=== PATIENT | female | born 1990 | race Caucasian/White ===

== ENCOUNTER 2019-09-14 10:28 | Emergency (ER) | payer OTHER, SELFPAY ==
--- NOTE | 2019-09-14 10:41 | ED.GENADULT ---
HPI - General Adult General Chief complaint: Upper Respiratory Infection Stated complaint: Cough Time Seen by Provider: 09/14/19 10:42 Source: patient and RN notes reviewed Mode of arrival: ambulatory Limitations: no limitations History of Present Illness HPI narrative: This is a 29 years old female for an evaluation of flu/cold symptoms for two days. Symptoms include cough, feverish, sore throat, congestion. She had three months baby; currently breast feeding. NO treatment prior to arrival. She received influenza vaccine for this season. Related Data Home Medications Medication Instructions Recorded Confirmed PNV cmb#95-ferrous fumarate-FA 1 tablet PO DAILY 06/10/19 09/14/19 [] duloxetine 30 mg PO DAILY 09/14/19 09/14/19 duloxetine 60 mg PO DAILY 09/14/19 09/14/19 fluticasone propionate 1 mcg INTRANASAL DIRECTED 09/14/19 09/14/19 norethindrone (contraceptive) 0.35 mg PO DIRECTED 09/14/19 09/14/19 prednisone 10 mg PO DAILY 09/14/19 09/14/19 Allergies Allergy/AdvReac Type Severity Reaction Status Date / Time No Known Allergies Allergy Unknown Verified 09/14/19 10:44 Review of Systems Review of Systems: Narrative: CONSTITUTIONAL: Reports fever, chills, sweats. ENT: Reports rhinorrhea, congestion, sore throat, otalgia. CARDIOVASCULAR: Denies chest pain RESPIRATORY: Denies dyspnea, wheezing. Reports cough GASTROINTESTINAL: Denies abdominal pain, nausea, diarrhea. +vomiting last night GENITOURINARY: Denies urinary symptoms or discharge SKIN: Denies rash MUSCULOSKELETAL: Denies acute back pain NEUROLOGIC: Denies lightheaded PMFSH Past Medical History Medical History Obesity Family History Family History Grandparent COPD (chronic obstructive pulmonary disease) Lung cancer Social History Social History Smoking status: Former smoker Tobacco type: cigarettes Second hand tobacco smoke exposure: Yes Substance use: never Gender identity (if verbalized by the patient): Female Spiritual care concerns: No Comments At time of signature, I agree with nursing past medical, surgical, social and family history. There is no relevant family history pertinent to the presenting complaint. Exam Narrative: Exam Narrative: GENERAL: This is a well-nourished, well-developed patient, in no apparent distress. EYES: Sclera clear/white. Vision is grossly intact. EARS: External ears normal, auditory canals clear and without drainage, TMs normal without perforation. Hearing grossly intact. NOSE: External nose normal with no obvious nasal discharge, nares without redness, no rhinorrhea. THROAT: Mucous membranes moist, posterior pharynx clear. NECK: Neck supple, non-tender without lymphadenopathy, masses or thyromegaly. CARDIOVASCULAR: Regular rate and rhythm without murmurs, gallops, or rubs. RESPIRATORY: Clear to auscultation. Breath sounds equal bilaterally. No wheezes, rales, or rhonchi. GASTROINTESTINAL: Abdomen soft, non-tender, nondistended. Bowel sounds are active. No hepato-splenomegaly, or palpable masses. No guarding. SKIN: warm, intact with no suspicious lesions or rash, good texture and turgor. NEURO: awake, alert, and oriented to person, place and time. There were no obvious focal neurologic abnormalities. Steady gait [place] Coma Scale Eye Opening: Spontaneous 4 [place] Coma Scale Motor: Obeys Commands 6 [place] Coma Scale Verbal: Oriented 5 Course Reevaluation(s) Reevaluation #1: I went to update patient regarding her influenza and strep test, patient vomited in the trashcane. Time: 11:01 Reevaluation #2: Patient would like to try ibuprofen and see how she fell if she able to keep it down she will would like to go home rather than going to the ER. Time: 11:33 Date: 09/14/19 Time: 11:59 Additional Reevaluation(s): Patient repo
[2019-09-14 10:45] VITALS: BP 106/63; PULSE 136; RESP 27; TEMP 38.9; O2SAT 97
[2019-09-14 10:56] VITALS: TEMP 38.8
[2019-09-14] MEDS: ACETAMINOPHEN 500 MG TABLET 1000 MG PO (10:56)
[2019-09-14] MEDS: ONDANSETRON HCL ODT 4 MG TABLET PO (11:05)
--- NOTE | 2019-09-14 11:05 | PC.NURSE ---
1100---pt coughed and then vomited in the trash moderate amount and so tylenol came back up entirely.
[2019-09-14 11:26] VITALS: TEMP 38.8
[2019-09-14 11:37] VITALS: TEMP 38.8
[2019-09-14] MEDS: IBUPROFEN SUSPENSION 200 MG/10 ML UDC 400 MG PO (11:37)
[2019-09-14 12:10] VITALS: TEMP 38.1
[2019-09-14 12:21] VITALS: PULSE 113; RESP 22; TEMP 38.1; O2SAT 98
== END 2019-09-14 12:21 | disposition home or self-care (01) ==
PROVIDERS: Emergency Provider Nurse Practitioner
DX: J06.9 Acute upper respiratory infection, unspecified (principal); Z87.891 Personal history of nicotine dependence; E66.9 Obesity, unspecified
CPT/HCPCS: 87081; 87804; 87880; 99213; A9270; G0463

== ENCOUNTER 2022-02-16 10:04 | Emergency (ER) | payer OTHER, SELFPAY ==
--- NOTE | ~2022-02-16 | XR_ITS ---
EXAMINATION: XR ankle LT min 3V DATE: 02/16/2022 10:27 INDICATION: Lateral left ankle pain. TECHNIQUE: 4 views of left ankle were obtained. COMPARISON: None. FINDINGS: Bone alignment is normal. No fracture. Joint spaces are well maintained. There is an enthes ophyte at posterior aspect of calcaneal tuberosity. IMPRESSION: 1. No fracture. Reviewed, dictated and finalized at location A. IMPRESSION: 1. No fracture.
[2022-02-16 10:13] VITALS: BP 127/69; PULSE 84; RESP 16; TEMP 36.7; O2SAT 100
--- NOTE | 2022-02-16 10:24 | ED.LOWEXIN ---
HPI - Extremity Injury (Lower) General Chief Complaint: Extremity Injury, Lower Stated Complaint: Left Ankle Pain Time Seen by Provider: 02/16/22 10:24 Source: patient Mode of arrival: ambulatory Limitations: no limitations History of Present Illness HPI Narrative: 31-year-old female presents with complaint of pain to lateral aspect left heel for approximately 1 week after hitting it with bed frame. Is concerned that she may have a fracture. States that she has not been able to rest injury due to working. 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 Is taking ibuprofen and Tylenol, has applied ice. Patient arrived wearing flip-flops slippers. Ambulatory with steady gait. All systems reviewed and negative except as noted above. Related Data Home Medications Medication Instructions Recorded Confirmed duloxetine 30 mg capsule,delayed 30 mg PO DAILY 09/14/19 09/14/19 release Iud 02/16/22 alprazolam 0.5 mg tablet (Xanax) mg 02/16/22 Allergies Allergy/AdvReac Type Severity Reaction Status Date / Time No Known Allergies Allergy Unknown Verified 09/14/19 10:44 Review of Systems Review of Systems: CONSTITUTIONAL: Denies fever, chills, or sweats. EYES: Denies visual changes, redness, or discharge. ENT: Denies rhinorrhea, congestion, sore throat, or otalgia. CARDIOVASCULAR: Denies chest pain, palpitations, or edema. RESPIRATORY: Denies cough or dyspnea. GASTROINTESTINAL: Denies abdominal pain, nausea, vomiting, or diarrhea. GENITOURINARY: Denies dysuria or hematuria. SKIN: Denies rash or itching. MUSCULOSKELETAL: Denies back pain, joint pain, or myalgia. Reports pain to left lateral heel. NEUROLOGIC: Denies headache, numbness, or weakness. PSYCHIATRIC: Denies anxiety or depression. All other systems reviewed are negative, except as documented in HPI. [facility] Past Medical History Medical History (Updated 02/16/22 @ 10:52 by Kary Espinoza NP) Obesity Family History Family History Grandparent COPD (chronic obstructive pulmonary disease) Lung cancer Social History Social History Smoking status: Former smoker Tobacco type: cigarettes Second hand tobacco smoke exposure: Yes Substance use: never Gender identity (if verbalized by the patient): Female Spiritual care concerns: No Comments At time of signature, agree with nursing past medical, surgical, social and family history. There is no relevant family history pertinent to the presenting complaint. Exam Narrative: GENERAL: This is a well-nourished, well-developed patient, in no apparent distress. HEAD: normocephalic, atraumatic. EYES: PERRL. Sclera clear/white. Vision is grossly intact. EARS: External ears normal NOSE: External nose normal NECK: Neck supple, non-tender without lymphadenopathy, masses or thyromegaly. CARDIOVASCULAR: Regular rate and rhythm without murmurs, gallops, or rubs. RESPIRATORY: Clear to auscultation. Breath sounds equal bilaterally. No wheezes, rales, or rhonchi. SKIN: warm, Dry, intact with no suspicious lesions or rash, good texture and turgor. NEURO: awake, alert, and oriented to person, place and time. There were no obvious focal neurologic abnormalities. EXTREMITIES: No joint tenderness, effusion, or edema noted. Tenderness to lateral aspect left heel. No bruising or swelling noted. Course Course Level of Care: Express Care Visit Vital Signs Vital signs: Vital Signs Temperature 36.7 C 02/16/22 10:13 Pulse Rate 84 02/16/22 10:13 Respiratory Rate 16 02/16/22 10:13 Blood Pressure 127/69 02/16/22 10:13 Pulse Oximetry 100 02/16/22 10:13 Oxygen Delivery Room Air 02/16/22 10:13 Temperature 36.7 C 02/16/22 10:13 Pulse Rate 84 02/16/22 10:13 Respiratory Rate 16 02/16/22 10:13 Blood Pressure 127/69 02/16/22 10:13 Pulse Oximetry
== END 2022-02-16 11:08 | disposition home or self-care (01) ==
PROVIDERS: Emergency Provider Nurse Practitioner Family
DX: S90.02XA Contusion of left ankle, initial encounter (principal); W22.03XA Walked into furniture, initial encounter; Z87.891 Personal history of nicotine dependence; E66.9 Obesity, unspecified; Z68.31 Body mass index [BMI] 31.0-31.9, adult
CPT/HCPCS: 73610; 99213; G0463

== ENCOUNTER 2024-09-10 07:34 | Emergency (ER) | payer OTHER, SELFPAY ==
--- NOTE | ~2024-09-10 | XR_ITS ---
EXAMINATION: XR chest 2V DATE: 09/10/2024 09:12 INDICATION: Fever. Cough. Congestion. TECHNIQUE: Frontal and lateral views of the chest were obtained. COMPARISON: Chest 2 views 12/03/2015 FINDINGS: There is no pneumonia, pleural effusion, or pneumothorax. The heart size is normal. IMPRESSION: 1. No acute cardiopulmonary disease. Reviewed, dictated and finalized at location A. 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
--- NOTE | ~2024-09-10 | CT_ITS ---
EXAMINATION: CTA chest PE protocol DATE: 09/10/2024 10:50 INDICATION: Shortness of breath. TECHNIQUE: Computed tomography angiography (CTA) of the chest was performed with 100 mL Omnipaque-350 intravenous contrast timed to evaluate the pulmonary arteries. Coronal maximum intensity projection 3D-reconstructions were created by the technologist. Automated exposure control and iterative reconst ruction technique were employed. The dose-length product was 397.31 mGy-cm. COMPARISON: CT abdomen and pelvis 04/04/2018 FINDINGS: There is bronchiectasis and mild atelectasis in lingula. A calcified left lung nodule and c alcified left hilar and mediastinal lymph nodes are consistent with old granulomatous disease. No ple ural effusion. The heart size is normal. No pericardial effusion. There is no pulmonary embolus. Ther e is mild thoracic spondylosis. IMPRESSION: 1. No pulmonary embolus. Reviewed, dictated and finalized at location A. 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 No pulmonary embolus.
[2024-09-10 07:37] VITALS: BP 121/81; PULSE 98; RESP 20; TEMP 36.8; O2SAT 98
--- OUTSIDE RECORDS SUMMARY | 2024-09-10 07:37 | XMS_ITS | Data Portability ---
Author Organization [facility] [place] Address [address] [place] [address] Care Team Providers Care Meat Cutting Teacher Name Role Phone PRABHA JOHNSON Primary Care Provider [phone] Assessment Encounter Date Assessment Date Assessment LastModified by Organization Details LastModified Time 11/22/2021 11/22/2021 Annual gynecological exam performed. Patient will come back in a year unless there are new symptoms. Suggest Calcium with Vitamin D if not eating in diet. Patient advised to get annual flu shot. Recommend yearly physicals and preform monthly breast exams. Genetic testing is available for patients with family history of cancer. Engage in safe sexual practices, use condoms. Encouraged to have daily exercise. Avoid tobacco and illicit drugs, moderation of alcohol. If BMI greater than 25 dietary consult advised. If you have any questions please call or email. Not available 11/22/2021 11:42:43 05/09/2022 05/09/2022 restart cymbalta 30 mg daily, rf alprazolam, copy in chart, any suicidal thoughts to ED f/u med check in 5 months Not available 05/09/2022 15:38:57 Plan of Treatment Reminders Order Date Submit Date Provider Last Modified By Organization Details Last Modified Time Details Appointments None recorded. Lab None recorded. Referral None recorded. Procedures None recorded. Surgeries None recorded. Imaging None recorded. Medication Orders Cymbalta 30 mg capsule,de layed release 2021 022 [email or web address] 1 [id number], [address] [place], [place], [id number], 03/29/202 3 18:12:50 Patient TargetsNo targets recorded. Patient InstructionsNo instructions recorded. Reason for Referral None Reported. Results Created Date Observation Date Name Description Value Unit Range Abnormal Flag Note LastModifiedBy Organization Detail LastModifiedTime 11/23/19 22 11/22/2021 IMAGE GUIDE D PAP AND HPV REGAR DLESS image guided Pap, HPV regardless of Pap result SEE RESULT S BELOW CASE REPOR T: Cytol ogy Gynec ologi sigifredo Repor t Case: [id number] Autho camilla campuzano Provi estrella: Prabha Hughes, JOSE Colle cted: 11/22 1511 Order ing Locat ion: [place] [facility] Recei nu: 11/23 0133 First Deann n: Davina Lopez Speci men: Deann del valle Pap - Image d, Cervi x STATE MENT OF ADEQU ACY: Satis facto ry for evalu ation Trans forma tion zone compo nent prese nt FINAL DIAGN OSIS: Negat oliverio for Intra epith eliveronica farah or Sayra levy (NIL) . Elect alcon gillette bell d by Davina Lopez on 2021 at 8:44 PM ----- ----- ----- ----- ----- ----- ----- ----- ----- ----- ----- ----- ----- ----- ----- ----- ----- ---- HPV RESUL TS: HPV mRNA E6/E7 : No HPV mRNA Detec vicky NOTE: This high risk HPV mRNA assay detec ts fourt een high- risk HPV types (16, 18, 31, 33, 35, 39, 45, 51, 52, 56, 58, 59, 66, 68) witho ut diffe renti ation . COMME NT: Note: This speci men was revie wed by a Cytot echno logis t and/o r Patho logis t (as indic ated in this repor t) after evalu ation using the Thinp rep Imagi ng Syste m. CLINI SIGIFREDO INFOR MATIO N: Menst rual Statu s: LMP (if appli cable ): Clini sigifredo Histo ry/Pr eviou s Pap: Type of Neopl lucas (if appli cable ): Signi fican t Clini sigifredo Findi ngs: Other Histo ry: Hormo jabier (if appli cable ): PAP EDUCA CORBY L NOTE: The Pap Test is a scree eligio test with an inher ent false negat oliverio rate. Liqui d-bas ed sampl ing may decre ase, but will not elimi bethany, false negat oliverio resul ts. A negat oliverio resul t does not precl ude the prese nce and/o r devel opmen t of disea se, since the prese nce of abnor mal cells in the sampl e depen ds on the locat ion of the lesio n and sampl ing techn ique. Feli nued regul ar scree eligio is the best metho d of cance r preve ntion . If repor vicky cytol ogic findi ng do not corre late with physi sigifredo and/o r histo rical findi ngs, furth er inves tigat ion is recom nury d, as clini syl warra nted. Not Available [facility] (Lab) [address], [place], [address], 11/29/2021 21:47:43 Result Notes None recorded. Procedures Surgical History Date Name Laterality Status Provider Name and Address Organization Details Recorded Time 11/23/19 22 Date of Last Pap Smear completed Jesica Riddle [facility] 11/22/2021 11:16:42 06/23/20 19 section completed Jesica Riddle [facility] 11/22/2021 11:21:51 08/05/19 15 Dilation and Curettage completed Jesica Riddle [facility] 11/22/2021 11:22:05 08/05/19 14 Laparoscopy completed Jesica Riddle [facility] 11/22/2021 11:22:20 08/05/18 94 Knee arthroscopy/deepti stephanie completed [facility] 11/22/2021 11:23:29 Imaging Results None recorded. Procedure Notes None recorded. Medical Equipment None Reported. Allergies No known drug allergies Medications Name Sig Start Date Stop Date Status Note LastModified by Organization Details LastModified Time Mirena 21 mcg/24 hr (up to 8 years) 52 mg intrauter ine device Take by intraute rine route. 2018 active MIRENA IUD INSERTED 07/2019 AND NEEDS REMOVED BY 07/2026 Not Available Not Available Not Available alprazola m 0.5 mg tablet active Not Available Not Available Not Available alprazola m 0.25 mg tablet 12/20 completed Not Available Not Available Not Available duloxetin e 30 mg capsule,d elayed release Take 1 capsule every day by oral route as directed for 30 days. 10/31 completed Not Available Not Available Not Available Vitals Date Recorded Body height Body mass index (BMI) Body weight Systolic blood pressure Diastolic blood pressure Provider Name and Address Organization Details Last Updated DateTime 11/22/2021 167.64 cm 31.2 kg/m2 70786.33 g 137 mm[Hg] 83 mm[Hg] [facility] 2 11:15:56 Date Recorded Body height Body mass index (BMI) Body weight Systolic blood pressure Diastolic blood pressure Provider Name and Address Organization Details Last Updated DateTime 12/06/2021 167.64 cm 30.8 kg/m2 01907.14 g 111 mm[Hg] 71 mm[Hg] [facility] 2 12:39:57 Date Recorded Body height Body mass index (BMI) Body weight Systolic blood pressure Diastolic blood pressure Provider Name and Address Organization Details Last Updated DateTime 12/20/2021 167.64 cm 31 kg/m2 90763.74 g 107 mm[Hg] 70 mm[Hg] [facility] 2 11:56:05 Date Recorded Body height Body mass index (BMI) Body weight Systolic blood pressure Diastolic blood pressure Provider Name and Address Organization Details Last Updated DateTime 05/09/2022 167.64 cm 32.6 kg/m2 87528.66 g 116 mm[Hg] 75 mm[Hg] Jesica Riddle [facility] 2 15:27:51 Date Recorded Body height Body mass index (BMI) Body weight Systolic blood pressure Diastolic blood pressure Provider Name and Address Organization Details Last Updated DateTime 10/31/2022 167.64 cm 34.2 kg/m2 41810.58 g 114 mm[Hg] 73 mm[Hg] Jesica Riddle [facility] 3 18:12:30 Social History Question Answer Notes LastModified by Organizat ion Details LastModified Time Tobacco Smoking Status Former Smoker Loco elizondo, [facility] 10/31/2022 18:03:41 Do You Have An Advance Directive? No [email or web address] Information not available 12/06/2021 What Is Your Level Of Alcohol Consumption? Occasional [email or web address] Information not available 11/22/2021 Are You Blind Or Do You Have Difficulty Seeing? No [email or web address] Information not available 11/22/2021 What Is Your Level Of Caffeine Consumption? Occasional [email or web address] Information not available 11/22/2021 In The 14 Days Before Symptom Onset, Have You Had Close Contact With A Laboratory-confir med COVID-19 While That Case Was Ill? No [email or web address] Information not available 11/22/2021 In The 14 Days Before Symptom Onset, Have You Had Close Contact With A Person Who Is Under Investigation For COVID-19 While That Person Was Ill? No [email or web address] Information not available 11/22/2021 Have You Been To An Area Known To Be High Risk For COVID-19? No [email or web address] Information not available 11/22/2021 Are You Deaf Or Do You Have Serious Difficulty Hearing? No [email or web address] Information not available 11/22/2021 What Type Of Diet Are You Following? REGULAR Information not available 11/22/2021 What Is The Highest Grade Or Level Of School You Have Completed Or The Highest Degree You Have Received? 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 No [email or web address] Information not available 12/06/2021 Do You Use Your Seat Belt Or Car Seat Routinely? Yes [email or web address] Information not available 11/22/2021 Do You Have Smoke And Carbon Monoxide Detectors In Your Home? Yes [email or web address] Information not available 11/22/2021 How Much Tobacco Do You Smoke? No Information not available 12/06/2021 Do You Feel Stressed (tense, Restless, Nervous, Or Anxious, Or Unable To Sleep At Night)? [id number] [email or web address] Information not available 12/06/2021 Do You Use Any Illicit Or Recreational Drugs? No [email or web address] Information not available 11/22/2021 Do You Use Sunscreen Routinely? Yes [email or web address] Information not available 11/22/2021 Has Tobacco Cessation Counseling Been Provided? No [email or web address] Information not available 10/31/2022 Have You Used IV Drugs? No [email or web address] Information not available 12/06/2021 Do You Or Have You Ever Used Any Other Forms Of Tobacco Or Nicotine? No Information not available 10/31/2022 Sex: Unknown Functional Status Question Answer Note LastModified by Organizat ion Details LastModified Time Do you have difficulty walking or climbing stairs? No Information not available 10/31/2022 Are you able to walk? YESWOREST [email or web address] Information not available 11/22/2021 Are you able to care for yourself? Yes [email or web address] Information not available 10/31/2022 Do you have difficulty dressing or bathing? No [email or web address] Information not available 10/31/2022 What is your exercise level? Occasional [email or web address] Information not available 11/22/2021 Mental Status None recorded. Family History Relationship Description Onset Age of this Age Resolved Age Notes LastModified by Organization Details LastModified Time Father Anxiety disorder [email or web address] Not available 11/22 11:19:59 Father Depressive disorder [email or web address] Not available 11/22 11:20:04 Father Posttraumati c stress disorder [email or web address] Not available 10/31 18:12:44 Father Bipolar disorder Not available 10/31 18:12:44 Mother Anxiety disorder [email or web address] Not available 11/22 11:19:59 Mother Depressive disorder [email or web address] Not available 11/22 11:20:09 Maternal Grandmother Malignant tumor of lung 63 [email or web address] Not available 10/31 18:12:44 Maternal Grandmother Chronic obstructive pulmonary disease 62 [email or web address] Not available 10/31 18:12:44 Maternal Grandfather Malignant tumor of lung 62 [email or web address] Not available 10/31 18:12:44 Medical History Condition Response Allergies (Food, seasonal, environmental ) N Other Y Drug/Latex Allergies/Reactions N Breast Cancer N Blood Transfusion N Lung Disease N Dermatologic Disorders N Defects or Inherited Disease N Breast Problem N Gestational Diabetes N Hematologic disorders N Anesthesia Complications N History of STI N Deep Vein Thrombosis N Polycystic ovary syndrome N Anxiety Disorder Y Autoimmune disease N Arthritis N Polyps N Infertility N History of abnormal pap N Acid Reflux (GERD) N Cancer N Varicosities N Stroke N Neurologic/Epilepsy N Endometriosis N High Cholesterol N Headaches N Fibromyalgia N Kidney Disease N Heart Problems N Thyroid Problems N Kidney or Bladder Problems N GI Problems N Eating Disorder N Anemia N Art (IVF or FET) N Psychiatric Illness N Ovarian Cancer N Diabetes N Pulmonary (TB, Asthma) N Hepatitis/Liver Disease N No Past Medical History N Eczema N Urinary Tract Infection N Abuse/Domestic Violence N Asthma N Trauma/Violence N Depression/ depression Y Heart Disease N Pre-Eclampsia N Hypertension N Osteoporosis N Thrombophilias N Gynecological History Statement/Question Response Abnormal Pap N Date of Last Mammogram Date of LMP 08/05/2021 N STIs/STDs N Current Control Method IUD Date of control 07/23/2019 Most Recent Bone Density Sexually Active? Y Age of first menstrual cycle 9 Date of Last Pap Smear 11/22/2021 Sexual Problems? N LMP Unknown N Obstetrics History GPAL:G 3 P 1 0 2 1 Type Value Full Term 1 Spontaneous 2 Living 1 Total 3 Past Encounters Encounter ID Performer Location Encounter Start Date Encounter Closed Date Diagnosis/Indication Diagnosis SNOMED-CT Code Diagnosis ICD10 Code Diagnosis Note [id number] Prabha Johnson CNM [place] [address],[place] [address] 11/22/2021 10:58:53 11/22/2021 11:53:24 Gynecologic examination 32912662 Z01.419 Anxiety 32867724 F41.9 discussed se risks if any suicidal thoughts to ED, xanax rx #15 handwritte n to pt, take only prn, no driving while taking f[facility] [id number] [address],[place] [address] 12/06/2021 11:55:27 12/06/2021 13:50:38 Anxiety 47744825 F41.9 continue eleazar robles iscussed se risks if any suicidal thoughts to ED, xanax rx #20 handwritte n to pt, take only prn, no driving while taking f/u 2week med check, offered hydralazin e instead but pt would like to cont with xanax prn [id number] [facility] [address],[place] [address] 12/20/2021 11:26:05 12/20/2021 13:50:16 Anxiety 18902692 F41.9 continue eleazar robles iscussed se risks if any suicidal thoughts to ED, xanax rx #20 handwritte n to pt, take only prn, no driving while taking f/u 3 month med check [id number] Prabha Johnson [facility] [address],[place] [address] 05/09/2022 15:22:20 05/09/2022 15:45:27 Mixed anxiety and depressive disorder 936150786 F41.8 [id number] Jesica Riddle [place] [address],[place] [address] 10/31/2022 18:03:35 11/01/2022 12:14:38 Anxiety 20518873 F41.9 ativan o.5mg as needed rx #20 handwritte n to pt, take only prn, no driving while taking, will stop prescribin g as i am referring to pcp for tx of suspected adhd,any suicidal thoughts to ED Health Concerns Section Related Observation LastModified by Organization Detai ls LastModified Time None Recorded Concern Status LastModified by Organization Details LastModified Time None Recorded Advance Directives Directive N: Payers Encounter Date Sequence Insurance Name Policy Number Policy Brennan Covered Member ID Brennan Member ID Guarantor Name 11/22/2021 1 [facility] ON OR AFTER 02/02/21 (MEDICAID REPLACEMENT - HMO) Danni Gan [id number] Danni Gan 12/06/2021 1 [facility] ON OR AFTER 02/02/21 (MEDICAID REPLACEMENT - HMO) Danni Gan [id number] Danni Gan 12/20/2021 1 [facility] ON OR AFTER 02/02/21 (MEDICAID REPLACEMENT - HMO) Danni Gan [id number] Danni Gan 05/09/2022 1 [facility] ON OR AFTER 02/02/21 (MEDICAID REPLACEMENT - HMO) Danni Gan [id number] Danin Gan 10/31/2022 1 [facility] ON OR AFTER 02/02/21 (MEDICAID REPLACEMENT - HMO) Danni Gan [id number] Danni Gan Notes Date Note Type Note Provider Name and Address Organization Details Recorded Time 11/22/2021 text/html Annual GYNReport ed bypatient.Breast:No breast pain; No breast lump; No nipple discharge Current Contraception:Intra uterine device (iud) Sexual complaints:No sexual complaints; No pain during intercourse; Normal libido Menopausal Symptoms:No menopausal symptoms; Normal vaginal lubrication Psychological symptoms:Anxiety; denies depression Preventive measures:Encourage self breast examination; Encourage regular exercise; Encourage no tobacco use; Encourage regular mammograms starting age 40Notes:no cycle on mirena, happy with it, lots of anxiety, mainly situational from live in , has somatic sxs due to anxiety like vomiting and stomach pain, has been on medication in past, cymbalta did work at one point difficult to work, happy at [employer], seeing research geneticist as counselor individually and with boyfriend, child, ricardo is 2 and doing well Prabha Johnson, MADDY [address], [place], [address], [facility] 11/22/2021 11:46:02 12/06/2021 text/html tx for anxiety, doing better today had called with sxs from cymbalta but now jitters have subsided and would like to continue xanax .5 helped, the .25 did not, knows it can be addictive and using only prn. seeing counselor with and without and feels much better Prabha Johnson CNM [address], [place], [address], [facility] 12/06/2021 13:45:39 12/20/2021 text/html f/u anxiety, isi ing cymbalta daily and xanax prn, has 4 left of original rx, making sure to only take prn, side effects from cymbalta seemed to have resolved, doing much better, at home counseling has been very helpful, pt doing personal and marriage counseling through the [employer], going on famil vacation next month. want to stay on current dose is doing well and has more good days now Prabha Johnson CNM [address], [place], [address], [facility] 12/20/2021 12:18:18 05/09/2022 text/html anxiety and depression, worse since stopped cymbalta would like to restart, no suicidal thoughts, still active in [employer], going to see family this weekend needs refill on alprazolam Prabha Johnson CNM [address], [place], [address], [facility] 05/09/2022 15:39:55 10/31/2022 text/html med check, anxiety,pt stopped cymbalta due to side effects, mood much better as situation has improved. feels that her sxs are more now of ADHD, difficult focusing and completing tasks which is causing anxiety. interested in looking into that diagnosis. would like refill of prn meds until she can get evaluationno suicidal thoughtsstill talking to counselor (research geneticist) Jesica Riddle [facility] 11/02/2022 18:22:44 OBGyn Episode Ob Episode Information Episode Created Date Number of Fetuses Patient Bloodtype Patient rh Status Prepregnancy Weight lbs Domestic Partner Domestic Partner Phone Father Name Enterer Status 11/23/19 22 1 CLOSED Fetus Data First Name Last Name Admitted to NICU Weight (g) Sex Living Outcome Pediatric Complications Fetus ID Race Codes Race Delivery Type , Spontane ous [id number] Warren Calculation Initial Warren Date Initial Exam Date Initial Exam Provider Initial Ultrasound Date Last Menstrual Period Date Ultra Sound Weeks Gestation 0 Eighteen To Twenty Week Warren Update Ultra Sound Date Fundal Height At Umbil Quickening Date Ultra Sound Latest Weeks Gestation Final Warren Confirmed By Final Warren Confirmed Date Final Warren Date Ultra Sound Latest Days Gestation 0 0 Menstrual History Last Menstrual Date Menses Monthly On Bcp Conception Prior Menses Frequency Hcg Plus Date Menarche Onset Age Delivery Information Delivery Date Delivery Type Labor Anesthesia Weeks Gestation Incision Type Labor Labor Length Hrs Delivered By Post Complications Tubal Sterilization Discharge Date Comments 5 Discharge Information Feeding Method Contraceptive Method Maternal HG B and HCT Levels Ob Episode Information Episode Created Date Number of Fetuses Patient Bloodtype Patient rh Status Prepregnancy Weight lbs Domestic Partner Domestic Partner Phone Father Name Enterer Status 11/23/19 22 1 CLOSED Fetus Data First Name Last Name Admitted to NICU Weight (g) Sex Living Outcome Pediatric Complications Fetus ID Race Codes Race Delivery Type , Spontane ous [id number] Warren Calculation Initial Warren Date Initial Exam Date Initial Exam Provider Initial Ultrasound Date Last Menstrual Period Date Ultra Sound Weeks Gestation 0 Eighteen To Twenty Week Warren Update Ultra Sound Date Fundal Height At Umbil Quickening Date Ultra Sound Latest Weeks Gestation Final Warren Confirmed By Final Warren Confirmed Date Final Warren Date Ultra Sound Latest Days Gestation 0 0 Menstrual History Last Menstrual Date Menses Monthly On Bcp Conception Prior Menses Frequency Hcg Plus Date Menarche Onset Age Delivery Information Delivery Date Delivery Type Labor Anesthesia Weeks Gestation Incision Type Labor Labor Length Hrs Delivered By Post Complications Tubal Sterilization Discharge Date Comments 8 Discharge Information Feeding Method Contraceptive Method Maternal HG B and HCT Levels Ob Episode Information Episode Created Date Number of Fetuses Patient Bloodtype Patient rh Status Prepregnancy Weight lbs Domestic Partner Domestic Partner Phone Father Name Enterer Status 11/23/19 22 1 CLOSED Fetus Data First Name Last Name Admitted to NICU Weight (g) Sex Living Outcome Pediatric Complications Fetus ID Race Codes Race Delivery Type [phone] 6 F Full Term [id number] Primary Warren Calculation Initial Warren Date Initial Exam Date Initial Exam Provider Initial Ultrasound Date Last Menstrual Period Date Ultra Sound Weeks Gestation 0 Eighteen To Twenty Week Warren Update Ultra Sound Date Fundal Height At Umbil Quickening Date Ultra Sound Latest Weeks Gestation Final Warren Confirmed By Final Warren Confirmed Date Final Warren Date Ultra Sound Latest Days Gestation 0 0 Menstrual History Last Menstrual Date Menses Monthly On Bcp Conception Prior Menses Frequency Hcg Plus Date Menarche Onset Age Delivery Information Delivery Date Delivery Type Labor Anesthesia Weeks Gestation Incision Type Labor Labor Length Hrs Delivered By Post Complications Tubal Sterilization Discharge Date Comments 9 38 Discharge Information Feeding Method Contraceptive Method Maternal HG B and HCT Levels
--- OUTSIDE RECORDS SUMMARY | 2024-09-10 07:37 | XMS_ITS | Clinical Summary ---
Author Organization [employer] [facility] [place] Address [address] [place] [address] Care Team Providers Care Hand Stone Polisher Name Role Phone Unavailable Primary Care Provider Unavailabl e Allergies No known active allergies Medications DULoxetine (CYMBALTA) 30 mg Capsule, Delayed Release(E.C.) Take 30 mg by mouth daily. Active albuterol HFA 90 mcg inhaler Take 2 Puffs by inhalation every 6 hours as needed for Wheezing or Shortness of Breath. 8.5 Gram 0 Active Social History Tobacco Use Types Packs/Day Years Used Date Smoking Tobacco: Every Day Cigarettes Comments No Sex and Gender Information Value Date Recorded Sex Assigned at Not on file Legal Sex Female 1:58 PM CDT Gender Identity Not on file Sexual Orientation Not on file Last Filed Vital Signs Vital Sign Reading Time Taken Comments Blood Pressure - - Pulse 85 12/01/2019 2:13 PM CDT Temperature 36.8 C (98.2 F) 12/01/2019 2:13 PM CDT Respiratory Rate 16 12/01/2019 2:13 PM CDT Oxygen Saturation 99% 12/01/2019 2:13 PM CDT Inhaled Oxygen Concentration - - Weight - - Height - - Body Mass Index - - Plan of Treatment Health Maintenance Due Date Last Done Comments DTAP/TDAP/TD VACCINES (1 - Tdap) 2007 HEPATITIS B VACCINES (1 of 3 - 19+ 3-dose series) 2007 CERVICAL CANCER SCREENING 2018 INFLUENZA VACCINE (#1) 2024 HPV VACCINES Aged Out No longer eligi ble based on patient's age to complete this topic PNEUMOCOCCAL VACCINE 0-64 YEARS Aged Out No longer eligible based on patient's age to complete this topic
[2024-09-10 08:55] VITALS: O2SAT 98
--- OUTSIDE RECORDS SUMMARY | 2024-09-10 09:27 | XMS_ITS | Clinical Summary ---
Author Organization [employer] [facility] [place] Address [address] [place] [address] Care Team Providers Care Account Executive Key Accounts Name Role Phone Unavailable Primary Care Provider [...]
--- NOTE | 2024-09-10 09:28 | ECG_ITS ---
Test Date: 2024-09-10 11:07:41 Measurements Intervals [place] Rate: 90 P: 60 ND: 138 QRS: -10 QRSD: 97 T: 53 QT: 319 QTc: 392 Interpretive Statements SINUS RHYTHM DELAYED PRECORDIAL R/S TRANSITION BORDERLINE ECG No previous ECG available for comparison Electronically Signed On 09-10-2024 11:16:17 EDI ARCHITECT by Winston Broderick D.O.
--- NOTE | 2024-09-10 09:44 | ED.URI ---
HPI - URI/Sore Throat General Chief Complaint: Upper Respiratory Infection Stated Complaint: fever 101.8, sore throat, body aches, diarrhea Time Seen by Provider: 09/10/24 08:58 Source: patient Mode of arrival: ambulatory Limitations: no limitations History of Present Illness HPI Narrative: Patient is a 34 y/o female who presents to the ED with c/o URI symptoms. Patient reports she has been sick since Saturday. Complains of body aches, cough, chills, fever, sore throat, congestion, headache, nausea, vomiting, diarrhea. States today she has been feeling increasingly short of breath, which prompted her presentation. Has been taking Tylenol for her symptoms. 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 Related Data Home Medications ?Medication ?Instructions ?Recorded ?Confirmed ?Last Taken ?Type duloxetine 30 mg capsule,delayed 30 mg PO DAILY 09/14/19 09/14/19 Unknown History release Iud 02/16/22 Unknown History alprazolam 0.5 mg tablet (Xanax) mg 02/16/22 Unknown History Allergies Allergy/AdvReac Type Severity Reaction Status Date / Time No Known Allergies Allergy Unknown Verified 09/10/24 09:00 Review of Systems Review of Systems: All systems reviewed & are unremarkable except as noted in HPI. All systems reviewed & are unremarkable except as noted in HPI and below PMFSH Past Medical History Medical History (Updated 09/10/24 @ 11:03 by Reena Espinal PA-C) Obesity Family History Family History Grandparent COPD (chronic obstructive pulmonary disease) Lung cancer Social History Social History Smoking status: Former smoker Tobacco type: cigarettes Second hand tobacco smoke exposure: Yes Substance use: never Gender identity (if verbalized by the patient): Female Spiritual care concerns: No Exam Narrative: GENERAL: Mildly ill appearing, obese with BMI of 32.6, non-toxic, in no acute distress. HEAD: Normocephalic, atraumatic. RESPIRATORY: Airway patent, respirations nonlabored. Clear to auscultation bilaterally, no rales, rhonchi, wheezing. No significant focal lung sounds. CARDIOVASCULAR: Regular rate and rhythm without murmurs, rubs, or gallops. ABDOMINAL: Soft, no significant tenderness throughout abdomen, nondistended. Normoactive BS. MUSCULOSKELETAL: Moves all extremities. No gross deformities. SKIN: Warm, dry, normal color. NEURO: A&O X3. Speech clear. PSYCHIATRIC: Appropriate mood and affect. Normal interaction. Course Vital Signs Vital signs: Vital Signs Temperature 98.2 F 09/10/24 07:37 Pulse Rate 98 09/10/24 07:37 Respiratory Rate 20 09/10/24 07:37 Blood Pressure 121/81 09/10/24 07:37 Pulse Oximetry 98 09/10/24 07:37 Oxygen Delivery Room Air 09/10/24 07:37 Temperature 98.2 F 09/10/24 12:18 Pulse Rate 98 09/10/24 12:18 Respiratory Rate 16 09/10/24 12:18 Blood Pressure 102/67 09/10/24 12:18 Pulse Oximetry 98 09/10/24 12:18 Oxygen Delivery Room Air 09/10/24 08:55 MDM - URI/Sore Throat MDM Narrative Medical decision making narrative: Patient presented to ED with several day history of URI/viral symptoms. Exposed to sick contacts at work. Reporting increased shortness of breath today. Vital signs are stable upon arrival. Patient is afebrile here. Oxygen is stable on room air, 98-100%. Chest x-ray is clear. Viral swabs resulted with Influenza A positive. This is consistent with clinical picture. Laboratory studies are otherwise unremarkable. EKG without ischemic changes. Troponin undetectable. D-dimer did result mildly elevated. CTA of chest was obtained no evidence of PE or other acute cardiopulmonary abnormality. Patient given fluids, Zofran, Toradol in the ED. otherwise safe for discharge home. Discussed further management of influenza at home, will prescribe Tessalon Perles and Zofran for home. Given return precautions. She agrees with plan. Discharged in stable condition. Medical Records Attestation: I reviewed the patient's medical records. Lab Data Attestation: I reviewed the patient's lab results. 09/10/24 09:45 09/10/24 09:45 Labs: Lab Results 09/10/24 09/10/24 Range/Units 09:45 10:39 WBC 5.0 (4.5-10.0) K/mm3 RBC 4.59 (4.2-5.4) M/mm3 Hgb 13.9 D (12.0-15.0) g/dL Hct 41.3 (37.0-47.0) % MCV 90.0 (80-100) fl MCH 30.3 (26-34) pg MCHC 33.7 (32-36) g/dl RDW 12.5 (11.5-14.5) % Plt Count 199 (150-375) k/mm3 MPV 9.5 (7.4-10.4) fl Immature Gran % (Auto) 0.2 (0-0.5) % Neut % (Auto) 67.3 (45.5-73.1) % Lymph % (Auto) 23.2 (18.3-44.2) % [place] % (Auto) 8.9 H (2.6-8.5) % Eos % (Auto) 0.0 (0-4.4) % Baso % (Auto) 0.4 (0.2-1.2) % Lymph # (Auto) 1.15 (0.9-3.2) K/mm3 [place] # (Auto) 0.4 (0.1-0.6) K/mm3 Eos # (Auto) 0.0 (0-0.3) K/mm3 Baso # (Auto) 0.0 (0.0-0.1) K/mm3 Abs Immat Gran (auto) 0.01 (0.00-0.031) K/mm3 Absolute Neuts (auto) 3.3 (1.3-6.7) K/mm3 Absolute Nucleated RBC 0.000 (0.0-0.012) K/mm3 Nucleated RBC % 0.0 (0.0-0.2) % D-Dimer 0.55 H (<0.48) ug/mL Sodium 137 (137-145) mmol/L Potassium 3.6 (3.4-5.0) mmol/L Chloride 100 (98-107) mmol/L Carbon Dioxide 24 (22-30) mmol/L Anion Gap 13 H (4-12) mmol/L BUN 12 (7-17) mg/dL Creatinine 0.74 (0.7-1.0) mg/dL Estim Creat Clear Calc 107 ml/min Estimated GFR > 60 (59 - ) Glucose 84 (65-110) mg/dL Calcium 9.3 (8.4-10.2) mg/dL Magnesium 2.1 (1.6-2.3) mg/dL Total Bilirubin 0.4 (0.2-1.3) mg/dL AST 27 (14-36) U/L ALT 20 (6-35) U/L Alkaline Phosphatase 51 (38-126) U/L Troponin I < 0.012 (0.000-0.034) ng/mL Total Protein 8.0 (6.3-8.2) g/dL Albumin 4.5 (3.5-5.1) g/dL POC Urine HCG, Qual Negative (Negative) Influenza A (RT-PCR) Positive A (Negative) Influenza B (RT-PCR) Negative (Negative) RSV (RT-PCR) Negative (Negative) SARS-CoV-2 RNA (RT-PCR) Negative (Negative) Imaging Data Attestation: I personally reviewed and interpreted this imaging study as follows: Radiologist's impression: ITS Impressions Chest X-Ray 09/10/24 09:25 IMPRESSION: 1. No acute cardiopulmonary disease. Chest CTA 09/10/24 11:05 IMPRESSION: 1. No pulmonary embolus. ECG Data EKG #1: Attestation: I personally reviewed and interpreted this ECG as follows: ECG completion date: 09/10/24 ECG completion time: 11:07 EKG Interpretation: normal rate (90), sinus rhythm and no ST changes Discharge Plan Discharge Clinical Impression: Influenza A Patient Disposition: Home, Self-Care Condition: Stable Instructions: Antibiotic Form, Influenza (ED), Cold Symptoms (ED) Additional Instructions: You were diagnosed with Influenza A today. Isolate at home as you are contagious. Stay well-hydrated at home. Recommend electrolyte rich fluids, Gatorade, Pedialyte, body armor. Zofran as needed for nausea. Tessalon Perles as needed for cough. Tylenol and Ibuprofen for discomfort and/or fevers. Recommend [id number] cough and cold medicines for symptom relief, Delsym, Mucinex, DayQuil, NyQuil, Sudafed, Robitussin, TheraFlu. Follow with primary care doctor upon resolution of symptoms. Return to the ED if you experience chest pain, difficulty breathing, unable to keep down food or drink, severe pain, or any other symptoms of concern. Patient Language: Citizen Of [place] Prescriptions: New benzonatate 200 mg capsule 200 mg PO TID PRN (Reason: cough) Qty: 15 0RF ondansetron 4 mg tablet,disintegrating 4 mg PO Q8H PRN (Reason: nausea and vomiting) Qty: 15 0RF No Action duloxetine 30 mg capsule,delayed release(DR/EC) 30 mg PO DAILY Iud alprazolam [Xanax] 0.5 mg Tablet Follow-up/Referrals: UNKNOWN,DOCTOR [Primary Care Provider] - Stand Alone Forms: Work/School Release IP Time of Disposition: 11:17
[2024-09-10 09:55] LABS: Basophils Percent Auto 0.4 % (0.2-1.2); Hematocrit 41.3 % (37.0-47.0); Hemoglobin 13.9 g/dL (12.0-15.0); Immature Granulocyte Absolute 0.01 K/mm3 (0.00-0.031); Immature Granulocyte Percent A 0.2 % (0-0.5); Lymphocytes Absolute Auto 1.15 K/mm3 (0.9-3.2); Lymphocytes Percent Auto 23.2 % (18.3-44.2); Mean Corpuscular HGB Conc 33.7 g/dl (32-36); Mean Corpuscular Hemoglobin 30.3 pg (26-34); Mean Platelet Volume 9.5 fl (7.4-10.4); Monocytes Absolute Auto 0.4 K/mm3 (0.1-0.6); Monocytes Percent Auto 8.9 % (2.6-8.5); Neutrophils Absolute Auto 3.3 K/mm3 (1.3-6.7); Neutrophils Percent Auto 67.3 % (45.5-73.1); Platelet Count Result 199 k/mm3 (150-375); Red Blood Count 4.59 M/mm3 (4.2-5.4); Red Cell Distribution Width 12.5 % (11.5-14.5)
[2024-09-10] MEDS: SODIUM CHLORIDE 0.9% IV 1,000 ML 999 ML IV CONT (10:02)
[2024-09-10] MEDS: ONDANSETRON INJ 4 MG/2 ML VIAL IV PUSH (10:03)
[2024-09-10 10:08] LABS: D Dimer 0.55 ug/mL (<0.48)
[2024-09-10 10:10] LABS: Alanine Aminotransferase 20 U/L (6-35); Albumin Level 4.5 g/dL (3.5-5.1); Alkaline Phosphatase 51 U/L (38-126); Anion Gap 13 mmol/L (4-12); Aspartate Amino Transferase 27 U/L (14-36); Bilirubin,Total 0.4 mg/dL (0.2-1.3); Blood Urea Nitrogen 12 mg/dL (7-17); Calcium 9.3 mg/dL (8.4-10.2); Carbon Dioxide 24 mmol/L (22-30); Chloride 100 mmol/L (98-107); Estimated CRCL calculation 107 ml/min; Estimated Glomerular Filt Rate > 60; Glucose 84 mg/dL (65-110); Magnesium 2.1 mg/dL (1.6-2.3); Potassium 3.6 mmol/L (3.4-5.0); Sodium 137 mmol/L (137-145)
[2024-09-10 10:20] LABS: Troponin I < 0.012 ng/mL (0.000-0.034)
[2024-09-10 10:30] LABS: Influenza A QL RT-PCR Positive (Negative); Influenza B QL RT-PCR Negative (Negative); RSV RNA, RT-PCR Negative (Negative); SARS-CoV-2 RNA PCR Negative (Negative)
[2024-09-10 10:41] LABS: BEDSIDEPREGUCG Negative (Negative)
[2024-09-10 11:09] VITALS: BP 112/72; PULSE 98; RESP 16; O2SAT 100
[2024-09-10] MEDS: KETOROLAC 30 MG/ML VIAL (*BKC) IV PUSH (11:24)
--- NOTE | 2024-09-10 11:28 | PC.NURSE ---
Patient requesting breathing treatment because her chest hurts when she takes a deep breath-spoke with Kylie-no new orders given. Patient is aware that she has the Flu
[2024-09-10 12:18] VITALS: BP 102/67; PULSE 98; RESP 16; TEMP 36.8; O2SAT 98
== END 2024-09-10 12:20 | disposition home or self-care (01) ==
PROVIDERS: Emergency Provider Physician Assistant
DX: J10.1 Influenza due to other identified influenza virus with other respiratory manifestations (principal); Z20.822 Contact with and (suspected) exposure to COVID-19; E66.9 Obesity, unspecified; Z68.32 Body mass index [BMI] 32.0-32.9, adult; Z87.891 Personal history of nicotine dependence; R94.31 Abnormal electrocardiogram [ECG] [EKG]
CPT/HCPCS: 36415; 71046; 71275; 80053; 81025; 83735; 84484; 85025; 85380; 87637; 93005; 96361; 96374; 96375; 99284; J1885; J2405; J7030; Q9967